=== PATIENT | female | born 1950 | race Caucasian/White ===

== ENCOUNTER → 2021-05-13 14:54 | Outpatient (BNVA) | payer MEDICARE, SELFPAY | PROVIDERS: PCP Internal Medicine; Visit Provider Nurse Practitioner Family | DX: G47.33 Obstructive sleep apnea (adult) (pediatric) (principal); R25.1 Tremor, unspecified; F32.A Depression, unspecified; Z79.899 Other long term (current) drug therapy | CPT/HCPCS: 99212 ==

== ENCOUNTER → 2022-01-24 14:25 | Outpatient (BNVA) | payer MEDICARE, SELFPAY | PROVIDERS: PCP Internal Medicine; Visit Provider Nurse Practitioner Family | DX: G25.0 Essential tremor (principal); F41.9 Anxiety disorder, unspecified | CPT/HCPCS: 99212 ==

== ENCOUNTER → 2022-07-15 12:57 | Outpatient (BNVA) | payer MEDICARE, SELFPAY | PROVIDERS: PCP Internal Medicine; Visit Provider Nurse Practitioner Family | DX: G25.0 Essential tremor (principal); G47.33 Obstructive sleep apnea (adult) (pediatric); F32.A Depression, unspecified; F41.9 Anxiety disorder, unspecified | CPT/HCPCS: 99212 ==

== ENCOUNTER 2023-03-01 08:49 | Outpatient (AMB) | payer MEDICARE, SELFPAY ==
[2023-03-01 08:54] VITALS: BP 112/82; PULSE 59; O2SAT 100; BMI 29.8
--- NOTE | 2023-03-01 08:54 | A.OFFVIS_ITS ---
Intake Vital Signs 03/01/23 08:54 Height 5 ft 5 in Weight 179 lb BMI 29.8 BP 112/82 Blood Pressure Location Rt brachial Position Sitting Pulse 59 Pulse Source Pulse Oximeter Pulse Oximetry (%) 100 Oxygen Delivery Method Room Air Intake Visit Reasons: 4m Follow up tremor/ LVM Intake Note: Patient presents for 4 month follow up tremors. Allergies aspirin [From Percodan] Allergy (Mild, Verified 03/01/23 08:59) unknown citalopram [From Celexa] Allergy (Mild, Verified 03/01/23 08:59) unknown hydroxyzine [From Vistaril] Allergy (Mild, Verified 03/01/23 08:59) Unknown oxycodone [From Percodan] Allergy (Mild, Verified 03/01/23 08:59) unknown quetiapine [From Seroquel] Allergy (Mild, Verified 03/01/23 08:59) unknown HPI HPI Comments History of Present Illness Details 72-yr-old female presents for f/u visit. Pt endorses the following interval medical history changes: Pt states she recently stopped all of her psych medications because she felt that the meds were not working any more and the newer medications she was trying was causing side effects. She stopped these meds abruptly, and she required an ER eval to help her manage her withdrawal s/s- nausea, diarrhea, stomach cramps, headache (states was negative for flu/COVID-19). Since, she is more depression and anxiety with decreased motivation, increased irritability. She is not interested in resuming medications, but is scheduled to resume psychotherapy next week. She did try Propranolol ER 80mg but this made her more dizzy/lightheaded, so decreased Overall her tremor is stable, but can be worse when stressed. She did try to stop Propranolol but had increased tremor and did not feel well. PFSH Medical History Cervicalgia GERD (gastroesophageal reflux disease) Headache HLD (hyperlipidemia) Surgical History Hx of breast reduction, elective H/O: hysterectomy Family History Mother Cancer Social History (Reviewed 03/01/23 @ 09:00 by BROOKLYNN Francisco Alcohol intake: never Patient Tobacco Use Status: Never used Tobacco Review of Systems Const All systems reviewed & are unremarkable except as noted in HPI and below Physical Exam Vital Signs: Last Vital Signs Pulse 59 03/01/23 08:54 BP 112/82 03/01/23 08:54 Pulse Ox 100 03/01/23 08:54 Oxygen Delivery Method Room Air 03/01/23 08:54 BMI result Body Mass Index 29.8 Const General: cooperative and no acute distress Orientation/consciousness: patient oriented x3 HEENT Head: Yes normocephalic Resp Effort & Inspection: normal respiratory effort and able to speak in complete sentences Neuro Other: Mild BUE postural tremor FFM intact General: patient oriented x3, gait normal and CN's II-XI intact bilaterally Cognition (Neuro): normal cognition Motor exam (neuro): 5/5 motor strength present throughout Psych Appearance: grossly normal Mental Status: mental status grossly normal Speech and movement: Clear speech present Affect: normal affect Attitude: cooperative Thought process: Normal thought process present Thought content: Normal thought content present Insight: Good insight present (Psych) Judgement: Good judgement present (Psych) Assessment & Plan Assessment & Plan (1) Tremor: Comment: essential vs exaggerated physiological Code(s): R25.1 - Tremor, unspecified (2) Anxiety: Code(s): F41.9 - Anxiety disorder, unspecified Plan Continue Propranolol ER 60mg qhs. Previous tremor tx trials- Gabapentin- possibly causing irritability. Propranolol ER 80mg- caused dizziness/lightheadedness. Lucas-Trio- not sure if was effective. Pt no longer has a psychiatrist- if mood worsens, we can consider resuming an anti-depressant for her. Encouraged pt to schedule pleasurable activities to avoid social isolation, such as with family or going to anabaptism. Concur w/ establishing care w/ new psychologist. Monitor LIT s/s for now. f/u in 4 months or sooner prn Coding Level of Care Code Est Pt Level 4 (99626) Diagnoses Tremor R25.1 Anxiety F41.9
== END 2023-03-01 09:32 | disposition home or self-care (01) ==
PROVIDERS: Visit Provider Nurse Practitioner Family
DX: R25.1 Tremor, unspecified (principal); F41.9 Anxiety disorder, unspecified
CPT/HCPCS: 99214

== ENCOUNTER → 2023-03-01 08:49 | Outpatient (BNVA) | payer MEDICARE, SELFPAY | PROVIDERS: Visit Provider Nurse Practitioner Family | DX: R25.1 Tremor, unspecified (principal); F41.9 Anxiety disorder, unspecified | CPT/HCPCS: 99212 ==

== ENCOUNTER 2023-12-07 08:31 | Outpatient (AMB) | payer MEDICARE, SELFPAY ==
--- NOTE | 2023-12-07 08:33 | A.OFFVIS_ITS ---
Vital Signs 12/07/23 08:34 Height 5 ft 5 in Weight 166 lb BMI 27.6 BP 112/67 Blood Pressure Location Rt brachial Position Sitting Pulse 57 Pulse Source Pulse Oximeter Pulse Oximetry (%) 97 Oxygen Delivery Method Room Air Intake Visit Reasons: 4 mo f/u - Tremors Intake Note: memory loss, forgetting more often. Infantry Operations Specialist Required: No Accompanied by: Self / Same As Patient Allergies aspirin [From Percodan] Allergy (Mild, Verified 12/07/23 08:38) unknown citalopram [From Celexa] Allergy (Mild, Verified 12/07/23 08:38) unknown hydroxyzine [From Vistaril] Allergy (Mild, Verified 12/07/23 08:38) Unknown oxycodone [From Percodan] Allergy (Mild, Verified 12/07/23 08:38) unknown quetiapine [From Seroquel] Allergy (Mild, Verified 12/07/23 08:38) unknown Medication List - Last Reconciled 12/07/23 by JAYLA Stock atorvastatin 10 mg PO DAILY fexofenadine (Alejandra Allergy) 180 mg PO DAILY fluticasone propionate 50 mcg/actuation sprays intranasal propranolol ER 60 mg PO BEDTIME 30 days tizanidine 2 mg PO BEDTIME PRN HPI Comments Details: 73-yr-old female presents for f/u visit. Pt endorses the following interval medical history changes: Pt states she has been worked up for GERD and dysphagia, and chest CT showed a liquid nodule in the right thyroid compressing the trachea as well as a retroesophageal aberrant right subclavian artery. Since, the thyroid cyst but her s/s persisted. She is scheduled fro upcoming endoscopy. Recent thyroid levels were NL She did try to stop the Propranolol ER 80mg but this made her tremor worse. Overall her tremor is stable, but can be worse when stressed. Using Melatonin, Benadryl, Zanaflex 1/2 tab, and Tylenol for sleep and to minimize GERD s/s. Does snore, less since using invisalign. Does have ah/o mild LIT- but did not tolerate PAP tx before. She is noticing a bit more word finding difficulty and losing her train of thought, more so in the last few weeks. She is finding herself more easily agitated and prone to saying things she does not want to say. She is finding herself pushing people away. This is part of why, she stopped working a few months ago, as a substitute school nurse. And she has stopped going to amish. Her is supportive- but has medical issues. She does talk w/ her dtr- but she works. She is not talking w/ her grandchildren- states they have been. Her grt-granddtr recently from a brain tumor. PFSH Medical History HLD (hyperlipidemia) GERD (gastroesophageal reflux disease) Cervicalgia Headache Surgical History Hx of breast reduction, elective H/O: hysterectomy Family History Mother Cancer Social History Alcohol intake: never Patient Tobacco Use Status: Never used Tobacco Review of Systems Const All systems reviewed & are unremarkable except as noted in HPI and below Physical Exam Vital Signs: Last Vital Signs Pulse 57 12/07/23 08:34 BP 112/67 12/07/23 08:34 Pulse Ox 97 12/07/23 08:34 Oxygen Delivery Method Room Air 12/07/23 08:34 BMI result Body Mass Index 27.6 Const General: cooperative and no acute distress Resp Effort & Inspection: normal respiratory effort and able to speak in complete sentences Neuro Other: General: A&O x's 3 Expression: Intact Voice: Intact Tremor: Mild BUE postural tremor Psych: Pleasant affect, but as visit progressed sad and weepy at times. Assessment & Plan Assessment & Plan (1) Essential tremor: Code(s): G25.0 - Essential tremor Category: Medical (2) Depression: Code(s): F32.A - Depression, unspecified Category: Medical Plan Continue Propranolol ER 60mg qhs. Previous tremor tx trials- Gabapentin- possibly causing irritability. Propranolol ER 80mg- caused dizziness/lightheadedness. Lucas-Trio- not sure if was effective. Pt no longer has a psychiatrist- if mood worsens, we can consider resuming an anti-depressant for her. Encouraged pt to schedule pleasurable activities to avoid social isolation, such as with family or going to amish. Increase physical activity. Encouraged pt to reestablish care w/ new psychologist. Monitor cognition- likely multi-factorial Monitor LIT s/s for now- pt is not interested in retrying PAP tx. Invisalign may help some. f/u in 6 months or sooner prn Medications: Refilled propranolol ER 60 mg PO BEDTIME 30 days 30 caps 6RF Coding Level of Care Code Est Pt Level 4 (32257) Diagnoses Essential tremor G25.0 Depression F32.A
[2023-12-07 08:34] VITALS: BP 112/67; PULSE 57; O2SAT 97; BMI 27.6
== END 2023-12-07 09:33 | disposition home or self-care (01) ==
PROVIDERS: PCP Internal Medicine; Visit Provider Nurse Practitioner Family
DX: G25.0 Essential tremor (principal); F32.A Depression, unspecified
CPT/HCPCS: 99214

== ENCOUNTER → 2023-12-07 08:31 | Outpatient (BNVA) | payer MEDICARE, SELFPAY | PROVIDERS: PCP Internal Medicine; Visit Provider Nurse Practitioner Family | DX: G25.0 Essential tremor (principal); F32.A Depression, unspecified | CPT/HCPCS: 99212 ==

== ENCOUNTER 2025-02-18 13:49 | Outpatient (AMB) | payer BC, SELFPAY ==
--- OUTSIDE RECORDS SUMMARY | 2023-10-12 05:30 | XMS_ITS ---
[facility] [place] Address [address] [place] [address] Care Team Providers Care Legal Coordinator Name Role Phone Vibha Goode Primary Care Provider UnavailRalph Cavanaugh Unavailable [phone] Irene Sahu Unavailable [phone] Allergies Allergen (clinical drug ingredient) Drug/Non Drug Allergy documented on EMR Reaction Allergy Type Onset Date Status citalopram CeleXA Unknown Drug Allergy Active Percodan Unknown Drug Allergy Active quetiapine SEROquel Unknown Drug Allergy Active hydroxyzine Vistaril Unknown Drug Allergy Activ e REASON FOR VISIT seen sooner Medications Medication SIG (Take, Route, Frequency, Duration) Notes Start Date End Date Status Ibuprofen 800 MG 1 tablet with food o r milk as needed Orally every 8 hrs Active tiZANidine HCl 4 MG 1 tablet at bedtime as needed Orally Once a day Active Atorvastatin Calcium 10 MG 1 tablet Oral ly Once a day Active Propranolol HCl 60 MG 1 tablet Orally On ce a day Active NexIUM Active Social History Tobacco Use: Social History Observation Description Date Details (start date - stop date) Never Smoker NA - NA Tobacco Use/Smoking Question Answer Notes Are you a: nonsmoker Additional Findings: Tobacco Non-User Current no n-smoker Alcohol Screen Question Answer Notes Did you have a drink containing alcohol in the p ast year? No Points 0 Interpretation Negative Tobacco use other than smoking: Question Answer Notes Are you an other tobacco user? No Vital Signs Height 5 ft 5 in in 10/12/2023 Weight 165 lbs 10/12/2023 BMI 27.45 kg/m2 10/12/2023 Encounters Encounter Location Date Provider Diagnosis [facility] [address] [place] [address] 10/12/2023 Irene Sahu Plan Of Treatment No Information Progress Notes * Demi BRAUNDOB:1950 (74 yo F)Acc No.[id number]:10/12/2023 Progress Notes Patient: Demi LOPEZ Provider: Tiffanie Sahu DPM :1950 A ge:73 Y S ex:Female Date:10/12/2023 Address:[address] [place], [place] [id number] Pcp:Vibha Goode Subjective: * Chief Complaints: * 1 . Seen sooner. * ROS: H EENTM: Glasses/contacts a dmits. D ental implants a dmits.? G astrointestinal: Irritable bowel a dmits. C onstipation a dmits.? M usculoskeletal: Back Pain a dmits. G eneralized aches and pains a dmits. I nteg.: Ingrown nails a dmits. N eurologic: Tremors a dmits. * Medical History: A nxiety, Back,Hip,and Knee pain, Covid-19, Depression, Reflux ( GERD), Sinusitis, Measles, Mumps, Chicken pox, Essential tremors. * Surgical History: b reast reduction 1994, hysterectomy 2007, oopherectomy 1975, Ingrown Toe Nail, right 04/2021. * Family History: M other: , diagnosed with Other malignant neoplasm of unspecified site. F ather: . P aternal aunt: kidney/liver disease. M aternal aunt: kidney/liver disease. S iblings: high blood pressure, poor circulation. S pouse: diagnosed with Diabetic - NIDDM. * Social History: T obacco Use: T obacco Use/Smoking A re you a: n onsmoker A dditional Findings: Tobacco Non-User C urrent non-smoker Tobacco use other than smoking A re you an other tobacco user? N o D rugs/Alcohol: D rugs H ave you used drugs other than those for medical reasons in the past 12 months? N o Alcohol Screen D id you have a drink containing alcohol in the past year? N o P oints 0 I nterpretation N egative M iscellaneous: C affeine: yes. Children: yes, 1. Marital status: . Occupation: Retired Nurse. * Medications: T aking Propranolol HCl 60 MG Tablet 1 tablet Orally Once a day , Taking NexIUM , Taking Atorvastatin Calcium 10 MG Tablet 1 tablet Orally Once a day , Taking Ibuprofen 800 MG Tablet 1 tablet with food or milk as needed Orally every 8 hrs , Taking tiZANidine HCl 4 MG Tablet 1 tablet at bedtime as needed Orally Once a day * Allergies: P ercodan, Vistaril, CeleXA, SEROquel. Objective: * Vitals: H t: 5 ft 5 in, Wt:165, BMI:27.45, Shoe size: 9, Ht-cm: 165.1 cm, Wt-k.84 kg. Assessment: Plan: * Treatment: * Images: * The named appointment provid er may or may not be the originator of this progress note, and it is not deemed complete until electronically signed by the appointment provider. Sign off status: Pending * Provider: Tiffanie Sahu DPM Date: 0 10/12/2023 Generated for Indira florez/Beena/Jono on: 04/20/2024 05:41 PM EST
--- OUTSIDE RECORDS SUMMARY | 2024-05-27 05:00 | XMS_ITS ---
Author Organization [facility] Address [address] [place] [address] Care Team Providers Care Nanotechnician Name Role Phone Vibha Goode Primary Care Provider Ralph Cowart Unavailable [phone] Irene Sahu Unavailable [phone] Encounters Encounter Location Date Provider Diagnosis [address] [address] 05/27/2024 Irene Sahu Plan Of Treatment No Information Progress Notes * AMELIADemi HUYNHDOB:1950 (74 yo F)Acc No.[id number]:05/27/2024 Progress Note Patient: Demi LOPEZ Provider: Tiffanie Sahu DPM :1950 A ge:74 Y S ex:Female Date:05/27/2024 Address:[address] [place], [place] [id number] Pcp:Vibha Goode Subjective: * Chief Complaints: * * Medical History: Objective: * Vitals: Assessment: Plan: * Treatment: * Images: * The named appointment provid er may or may not be the originator of this progress note, and it is not deemed complete until electronically signed by the appointment provider. Sign off status: Pending * Provider: Tiffanie Sahu DPM Date: 0 05/27/2024 Generated for Indira florez/Beena/Jono on: 04/20/2024 05:41 PM EST
--- NOTE | 2025-02-18 13:51 | A.OFFVIS_ITS ---
Vital Signs 02/18/25 13:52 Height 16 ft BP 100/70 Blood Pressure Location Rt brachial Position Sitting Pulse 61 Pulse Source Pulse Oximeter Pulse Oximetry (%) 97 Oxygen Delivery Method Room Air Intake Visit Reasons: follow up appt Intake Note: memory loss, forgetting more often. Sports Medicine Specialist Required: No Accompanied by: Self / Same As Patient Allergies aspirin (From Percodan) Allergy (Mild, Verified 12/07/23 08:38) unknown citalopram (From Celexa) Allergy (Mild, Verified 12/07/23 08:38) unknown hydroxyzine (From Vistaril) Allergy (Mild, Verified 12/07/23 08:38) Unknown oxycodone (From Percodan) Allergy (Mild, Verified 12/07/23 08:38) unknown quetiapine (From Seroquel) Allergy (Mild, Verified 12/07/23 08:38) unknown Medication List - Last Reconciled 02/18/25 by JAYLA Stock atorvastatin 10 mg PO DAILY esomeprazole magnesium (Nexium) 20 mg PO BID fexofenadine (Alejandra Allergy) 180 mg PO DAILY fluticasone propionate 50 mcg/actuation sprays intranasal propranolol ER (Inderal LA) 80 mg PO BEDTIME 30 days tizanidine 2 mg PO BEDTIME PRN HPI Comments Details: 74-yr-old female presents for f/u visit for tremor. She is scheduled to have a thyroid surgery in Apr 2025, d/t difficulty swallowing. Having increased mucus on her tongue and GERD s/s. She reached out to us a few months ago, and asked to increase the Propranolol ER from 60mg to 80mg- as she noticed increased head tremor, more so in the right hand. Overall her tremor is better now, but can be worse when stressed. Tolerating well Using Motrin 800mg or Tylenol PM, or Melatonin Gummies as needed for sleep. Using Zanaflex 1/2 tab as needed for back pain. Does snore, less since using invisalign. Does have ah/o mild LIT- but did not tolerate PAP tx before. 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 Returning to work has helped her break out of the habit of sitting on the couch and feeling more depressed after retiring. She notes that she has a h/o being easily triggered and frustrated when she sees something she does not like. She is noticing some STM lapses, word finding difficulty and losing her train of thought. She is not making mistakes or having issues in her new job. Her is supportive- but has medical issues. She does talk w/ her dtr- but she works. She is not talking w/ her grandchildren- states they have been. Her grt-granddtr recently from a brain tumor. PFSH Medical History HLD (hyperlipidemia) GERD (gastroesophageal reflux disease) Cervicalgia Headache Surgical History Hx of breast reduction, elective H/O: hysterectomy Family History Mother Cancer Social History Alcohol intake: never Patient Tobacco Use Status: Never used Tobacco Physical Exam Vital Signs: Last Vital Signs Pulse 61 02/18/25 13:52 BP 100/70 02/18/25 13:52 Pulse Ox 97 02/18/25 13:52 Oxygen Delivery Method Room Air 02/18/25 13:52 Const General: cooperative and no acute distress Resp Effort & Inspection: normal respiratory effort and able to speak in complete sentences Neuro Other: General: A&O x's 3 Expression: Intact Voice: Intact Tremor: Mild BUE postural tremor Psych: Pleasant affect Assessment & Plan Assessment & Plan (1) Essential tremor: Code(s): G25.0 - Essential tremor Category: Medical (2) Depression: Code(s): F32.A - Depression, unspecified Category: Medical Qualifiers: Depression Type: unspecified Qualified Code(s): F32.A - Depression, unspecified Plan Continue increased dose of Propranolol ER 80mg qhs. Previous tremor tx trials- Gabapentin- possibly causing irritability. Propranolol ER 80mg- caused dizziness/lightheadedness. Lucas-Trio- not sure if was effective. Concur with return to part-time nursing work Increase physical and social activity. Monitor cognition- likely multi-factorial Future considerations: establish care w/ new psychologist. Monitor LIT s/s for now- pt is not interested in retrying PAP tx. Invisalign may help some. f/u in 6 months or sooner prn Coding Level of Care Code Est Pt Level 4 (93928) Diagnoses Essential tremor G25.0 Depression, unspecified depression type F32.A Depression Type: unspecified
[2025-02-18 13:52] VITALS: BP 100/70; PULSE 61; O2SAT 97
--- OUTSIDE RECORDS SUMMARY | 2025-02-18 17:40 | XMS_ITS | Clinical Summary ---
Author Organization [facility] Address [address] [place], [place] [id number] Phone Care Team Providers Care Nursing Secretary Name Role Phone Cuate Brito MD Primary Care Provider + Allergies Active Allergy Reactions Criticality Noted Date Comments Citalopram Palpitations Low 07/10/2018 Hydroxyzine Other (See Comments),Restlessness Low 0 07/19/2013 RLS Hydroxyzine Pamoate Unknown 01/07/2022 Oxycodone Nausea and/or Vomiting 01/07/2022 Percodan Mena Itching,Nausea and/or Vomiting Quetiapine Joint Pain,Tardive Dyskinesia High 2013 Medications atorvastatin (LIPITOR) 10 MG tablet Take 10 mg by mouth daily. 10/19/2021 Active DULoxetine (CYMBALTA) 60 MG capsule Take 60 mg by mouth daily. 02/22/2021 Active fexofenadine (DOMINGO) 180 MG tablet Take 180 mg by mouth daily. 01/04/2022 Active fluticasone propionate (FLONASE) 50 mcg/actuation nasal spray 2 sprays by Nasal route daily. 11/24/2021 Active propranoloL (INDERAL LA) 60 mg 24 hr capsule Take 60 mg by mouth daily. 11/23/2021 Active tiZANidine (ZANAFLEX) 4 MG tablet Take 4 mg by mouth daily. 01/04/2022 Active traZODone (DESYREL) 50 MG tablet Take 50 mg by mouth daily. 02/22/2021 Active Social History Tobacco Use Types Packs/Day Years Used Date Smoking Tobacco: Never Smokeless Tobacco: Never Education Answer Date Recorded Are you interested in more education? Not on bin e 07/22/2022 Are you concerned about learning? Not on file 07/22/2022 No 07/22/2022 No 07/22/2022 Digital Access Answer Date Recorded No 08/20/2022 No 08/20/2022 No 08/20/2022 Reliable internet access at home? Not on file 08/20/2022 Device with a working camera? Not on file Comments Unknown Sex and Gender Information Value Date Recorded Sex Assigned at Female 01/04/2022 9:41 AM EDT Legal Sex Female 10:36 PM EDT Gender Identity Female 01/04/2022 9:41 AM EDT Sexual Orientation Not on file Last Filed Vital Signs Vital Sign Reading Time Taken Comments Blood Pressure 162/77 01/07/2022 11:58 AM EDT Pulse 58 01/07/2022 11:58 AM EDT Temperature 36.8 C (98.3 F) 01/07/2022 11:57 AM EDT Respiratory Rate 16 01/07/2022 11:53 AM EDT Oxygen Saturation 99% 01/07/2022 11:58 AM EDT Inhaled Oxygen Concentration - - Weight 81.2 kg (179 lb 1.6 oz) 01/07/2022 11:53 AM EDT Height 166.4 cm (5' 5.5 ) 01/07/2022 11:53 AM ED T Body Mass Index 29.35 01/07/2022 11:53 AM EDT Plan of Treatment Health Maintenance Due Date Last Done Comments DEPRESSION SCREENING 1963 HEPATITIS C SCREENING 1969 MAMMOGRAM 1991 COLOGUARD 1996 COLONOSCOPY 1996 COLORECTAL CANCER SCREENING 1996 FIT TEST 1996 FOBT 1996 SIGMOIDOSCOPY 1996 VIRTUAL COLONOSCOPY 1996 OSTEOPOROSIS SCREENING INITIAL (ONE-TIME) 2016 Adult Td,Tdap Booster 06/12/2018 06/12/2008, 007 INFLUENZA VACCINE (#1) 2024 , 12/22/2021, 01/15/2021, Additional history exists COVID-19 VACCINE ( season) 2024 10/12/2021, 01/31/2021, 05/18/2020, Additional history exists RSV VACCINE (1 - 1-dose 75+ series) 2026 LIPID PANEL 12/23/2026 12/23/2021 PNEUMOCOCCAL VACCINES (50+ years) Completed 01/26/2018, 01/20/2017 ZOSTER VACCINES Completed 06/28/2021, 04/30/2021 SMOKING STATUS SCREENING (Once After 26 Yrs) Completed 01/07/2022 HEPATITIS A VACCINES Aged Out No long er eligible based on patient's age to complete this topic HIB VACCINES Aged Out No longer eligi ble based on patient's age to complete this topic MENINGOCOCCAL VACCINES (ACWY) Aged Out No longer eligible based on patient's age to complete this topic MENINGOCOCCAL VACCINES (B) Aged Out N o longer eligible based on patient's age to complete this topic Medical Devices Not on file Insurance [employer] PPO MEDICARE REPLACEMENT MEDICARE PART A & B [employer] PPO MEDICARE REPLACEMENT MEDICARE PART A & B Member Subscriber Plan / Payer (Ef fective 2022-Present) Name:Mali Braun Member ID:[id number] Relation to Subscriber:Self Name:Michaelbenjiebrian Eugenenikki Subscriber ID:[id number] Payer ID:[id number] Group ID:Not on file Type:Medicare Address: [employer] [address] [address] [employer] O MEDICARE REPLACEMENT MEDICARE PART A & B [employer]ET[employer] PPO MEDICARE REPLACEMENT MEDICARE PART A & B [employer] PPO MEDICARE REPLACEMENT MEDICARE PART A & B [employer] PPO MEDICARE REPLACEMENT MEDICARE PART A & B [employer]ETNA PPO MEDICARE REPLACEMENT MEDICARE PART A & B AETNA PPO MEDICARE REPLACEMENT MEDICARE PART A & B [employer]ET[employer] PPO MEDICARE REPLACEMENT MEDICARE PART A & B Care Teams Nursing Secretary Relationship Specialty Start Date End Date Cuate Brito MD [address] [place] [id number] PCP - General Internal Medicine 01/07/22 Additional Source Comments The information contained in this document represents components of the legal health record. It is not the complete legal health record.[facility]
--- OUTSIDE RECORDS SUMMARY | 2025-02-18 17:40 | XMS_ITS | Clinical Summary ---
Author Organization [address] [facility] Address [address] [place] [address] Phone Care Team Providers Care Porcelain Slusher Name Role Phone Cuate Brito MD Primary Care Provider [phone] Allergies Active Allergy Reactions Criticality Noted Date Comments Aspirin Nausea And Vomiting Medium 07/21/2016 Citalopram 07/10/2018 Hydroxyzine Hcl Other 07/19/2013 RLS Quetiapine Fumarate Pain 10/31/2013 Venlafaxine 07/10/2018 Medications acyclovir (ZOVIRAX) 400 mg tablet Take 1 tablet (400 mg total) by mouth 5 (five) times a day. 2 Active atorvastatin (LIPITOR) 10 mg tablet Take 1 tablet (10 mg total) by mouth at bedtime. 4 Active esomeprazole (NexIUM) [address] capsule Take 1 capsule (40 mg total) by mouth 1 (one) time each day before breakfast. wait 30 minutes and then eat to activate medication 4 Active fluticasone propionate (FLONASE) 50 mcg/actuation nasal spray Administer 2 sprays into affected nostril(s) 1 (one) time each day. 2 Active oxyBUTYnin XL (DITROPAN-XL) 10 mg 24 hr tablet Take 1 tablet (10 mg total) by mouth 1 (one) time each day. 4 Active propranolol LA (INDERAL LA) 60 mg 24 hr capsule Take 1 capsule (60 mg total) by mouth 1 (one) time each day. 2 Active tiZANidine (ZANAFLEX) 4 mg tablet Take 1 tablet (4 mg total) by mouth 1 (one) time each day. 4 Active fexofenadine HCl (DOMINGO ALLERGY ORAL) Take by mouth. A ctive docusate sodium (COLACE) 100 mg capsule Take 1 capsule (100 mg total) by mouth 2 (two) times a day. Active famotidine (PEPCID) 20 mg tablet Take 1 tablet (20 mg total) by mouth 2 (two) times a day if needed for heartburn. 4 Active Active Problems Problem Noted Date Diagnosed Date Overweight (BMI 25.0-29.9) 12/23/2021 Essential tremor 12/22/2021 Overview (01/04/2024): Dr. Patrick Neck pain 06/07/2019 Low back pain without sciatica 05/10/2019 Pain of left hip joint 05/10/2019 Allergic rhinitis 07/10/2018 Anemia 07/10/2018 HSV (herpes simplex virus) infection 07/10/2018 Overview (01/04/2024): anogenital Steatohepatitis 07/10/2018 IBS (irritable bowel syndrome) 08/22/2014 Overview (01/04/2024): Constipation; improvement with dicyclomine. Hyperlipidemia 01/02/2014 Vitamin D deficiency 01/02/2014 Depression, major, recurrent ([facility] V24) 11/28 Overview (01/04/2024): Last Assessment & Plan: Encouraged patient to continue with Cymbalta and close follow-up with prescribing provider. PTSD (post-traumatic stress disorder) 11/28/2013 Substance abuse in remission ([facility] V24, [facility] V28) 11/28/2013 Overview (01/04/2024): Alcohol- sober since 1989 GERD (gastroesophageal reflux disease) 4 Hiatal hernia 07/19/2013 Immunizations Immunization Administration Dates Next Due H1N1 Inj Preservative Free 12/14/2010 Influenza trivalent, 0.5mL ( Fluzone High-dose) 65yo and older 12/22/2021,01/15/2021,01/15/2020,01/21 Influenza trivalent, with pr eservative (Fluzone; Afluria) 6mo and older 12/30/2013 Influenza, Unspecified 01/15/2021 PPD Test 12/08/2017,09/08/2017 Pneumococcal conjugate 13 va lent (Prevnar 13, PCV13) 2mo and older 01/20/2017 Pneumococcal polysaccharide 23 valent (Pneumovax 23) 2yo and older 01/26/2018 Td Tetanus diptheria (Tdvax) 7yo and older 11/07/2018,06/05/2006 Tdap Tetanus diptheria acell ular pertussis (Boostrix; Adacel) 7yo and older 06/12/2008 Zoster recombinant (Shingrix ) 19yo and older 06/28/2021,04/30/2021 Surgical History Surgery Date Site/Laterality Comments OTHER SURGICAL HISTORY 2007 PROCEDURE: HISTORICAL SUPRACERVICAL HYSTERECTOMY WITH BSO BREAST REDUCTION 1994 PROCEDURE: MO BREAST REDUCTION CATARACT EXTRACTION PROCEDURE: HISTORICAL CATARACT REMOVAL UPPER GASTROINTESTINAL ENDOSCOPY 11/07/2011 PROCEDURE: MO UPPER GI ENDOSCOPY PERFORMED; COMMENT: Dr. Stein, [facility]; totally normal. COLONOSCOPY 05/13/2010 PROCEDURE: HISTORICAL COLONOSCOPY; COMMENT: Dr. Stein, [facility]; normal. Repeat 5 yrs COLONOSCOPY 03/09/2005 PROCEDURE: HISTORICAL COLONOSCOPY; COMMENT: Dr. Stein, [facility]; normal. COLONOSCOPY 04/11/2019 PROCEDURE: HISTORICAL COLONOSCOPY; COMMENT: no polyps. UPPER GASTROINTESTINAL ENDOSCOPY 09/12/2019 PROCEDURE: MO UPPER GI ENDOSCOPY PERFORMED; COMMENT: tiny hiatal hernia. Medical History Medical History Date Comments Major depression DX:Major depres lake IBS (irritable bowel syndrome) 08/22/2014 D X:IBS (irritable bowel syndrome) Allergic rhinitis 07/10/2018 DX:Allergic rh initis Hyperlipidemia 01/02/2014 DX:Hyperlipidemi a Steatohepatitis 07/10/2018 DX:Steatohepatit is Depression, major, recurrent (CMS/HCC V24) 11/28/2013 DX:Depression, major, recurr ent ([facility]) Family history of malignant neoplasm of gastrointestinal tract 07/31/2014 DX:Family history of maligna nt neoplasm of gastrointestinal tract; COMMENT: Neg CN 2010, next exam 2015. GERD (gastroesophageal reflu x disease) 07/19/2013 DX:GERD (gastroesophageal re flux disease) Anemia 07/10/2018 DX:Anemia HSV (herpes simplex virus) infection 07/10/2018 DX:HSV (herpes simplex virus) infection; COMMENT: anogenital Vitamin D deficiency 01/02/2014 DX:Vitamin D deficiency PTSD (post-traumatic stress disorder) 11/28/2013 DX:PTSD (post-traumatic stress disorder) History of colonic polyps 07/31/2014 DX:His tory of colonic polyps Substance abuse in remission ([facility] V24, [facility] V28) 11/28/2013 DX:Substance abuse in remiss ion ([facility]); COMMENT: Alcohol- sober since 1989 History of Helicobacter pylo ri infection 09/02/2019 DX:History of Helicobacter p ylori infection; COMMENT: Treatment 2014, stool test -2016. Dysphagia DX:Dysphagia Globus sensation DX:Globus sensa tion Covid DX:COVID Black stool DX:Black stool Family History Medical History Relation Name Comments Colon cancer Mother age 43 Breast cancer Neg Hx Relation Name Status Comments Father fire key jones Mother (Age 48) colon ca 4 8yo Social History Tobacco Use Types Packs/Day Years Used Date Smoking Tobacco: Never Smokeless Tobacco: Never Tobacco Cessation:Counseling Given: Not Answered Alcohol Use Standard Drinks/Week Comments No 0 (1 standard drink = 0.6 oz pur e alcohol) Comments Unknown Sex and Gender Information Value Date Recorded Sex Assigned at Female 02/24/2024 8:49 AM EST Legal Sex Female 10:43 AM EST Gender Identity Female 02/24/2024 8:49 AM EST Sexual Orientation Not on file Obstetrics History Last Filed Vital Signs Vital Sign Reading Time Taken Comments Blood Pressure 134/64 02/29/2024 8:18 AM EST Pulse 56 02/29/2024 8:18 AM EST Temperature 36 C (96.8 F) 02/29/2024 8:18 AM EST Respiratory Rate 14 02/29/2024 8:18 AM EST Oxygen Saturation 96% 02/29/2024 8:18 AM EST Inhaled Oxygen Concentration - - Weight 72.6 kg (160 lb) 02/29/2024 8:18 AM EST Height 166.4 cm (5' 5.5 ) 01/17/2024 1:15 PM EDT Body Mass Index 26.22 01/17/2024 1:15 PM EDT Plan of Treatment Health Maintenance Due Date Last Done Comments Hepatitis A Vaccines (1 of 2 - Risk 2-dose series) 1969 Falls Risk Assessment 03/05/2022 Medicare Annual Wellness Visit 03/05/2022 Social Influencers of Health Screening 03/05/2022 Depression Screening 03/27/2024 Colorectal Cancer Screening: Colonoscopy 04/11/2024 04/11/2019 COVID-19 Vaccine ( season) 2024 12/22/2023, 01/26/2022, 10/12/2021, Additional history exists Influenza Vaccine (#1) 2024 , 12/15/2022, 12/22/2021, Additional history exists Breast Cancer Screening 06/30/2025 07/01/19 24, 06/11/2022, 03/15/2021, Additional history exists DTaP,Tdap,and Td Vaccines (4 - Td or Tdap) 11/07/2028 11/07/2018, 06/12/2008, 06/05/2006 Cholesterol Screening (Lipid Panel) 12/28/2028 12/29/2023, 12/29/2023 Osteoporosis Screening (Bone Density Screening) 09/25/2030 09/25/2020 Hepatitis C Screening Completed 12/30/2013 Pneumococcal Vaccine: 50+ Years Completed 01/26/2018, 01/20/2017 Zoster Vaccines Completed 06/28/2021, 04/30/2021 RSV Immunization Adult Patients Completed 03/25/2023 HIB Vaccines Aged Out No longer eligi ble based on patient's age to complete this topic HPV Vaccines Aged Out No longer eligi ble based on patient's age to complete this topic Hepatitis B Vaccines Aged Out No long er eligible based on patient's age to complete this topic IPV Vaccines Aged Out No longer eligi ble based on patient's age to complete this topic MMR Vaccines Aged Out No longer eligi ble based on patient's age to complete this topic Meningococcal ACWY Vaccine Aged Out N o longer eligible based on patient's age to complete this topic Meningococcal B Vaccine Aged Out No l onger eligible based on patient's age to complete this topic RSV Immunization Patients Under 20 months Aged Out No longer eligible based on patient's age to complete this topic Varicella Vaccines Aged Out No longer eligible based on patient's age to complete this topic Procedures Procedure Name Priority Date/Time Associated Diagnosis Comments LIPID PANEL Routine 12/29/2023 SCREENING MAMMOGRAPHY BI 2-VIEW BREAST INC CAD Routine 07/01/2023 11:28 AM EDT Encounter for screening mammogram for malignant neoplasm of breast DXA BONE DENSITY STUDY 1+ SITS AXIAL SKEL Routine 09/25/2020 11:07 AM EDT Encounter for general adult medical examination without abnormal findings COLONOSCOPY Routine 04/11/2019 HEPATITIS C SCREENING Routine 12/30/2013 from Last 3 Months or Most Recently Relevant to Health Maintenance Results * Lipid panel (12/29/2023) LDL/HDL Ratio 3 0 - 4 Triglycerides 105 0 - 150 mg/dL Cholesterol 171 0 - 200 mg/dL HDL 61 >=40 mg/dL LDL Cholesterol 89 0 - 100 mg/dL Blood Venous blood specimen / Unknown us Historical Provider LAB BLOOD ORDERABLES Oly l Result * SCREENING MAMMOGRAPHY BI 2-VIEW BREAST INC CAD (07/01/2023 11:28 AM EDT) Anatomical Region Laterality Modality Radiographic Helen ging 06/11/2022 10:1 3 AM EDT Narrative 07/03/2023 7:02 PM EDT This is a summary report. The complete report is available in the patient's medical record. If you cannot access the medical record, please contact the sending organization for a detailed fax or copy. Full field digital screening 2D C views and tomosynthesis mammography, reviewed with CAD and compared to previous. The breasts are composed of fatty and fibroglandular tissue. No suspicious mass, architectural distortion or suspicious calcifications are identified. IMPRESSION: : No mammographic evidence of malignancy. BIRADS 1-Negative; N. 5 year breast cancer risk assessment 1.3 % Lifetime breast cancer risk assessment 3.3 % Breast cancer risk category Low (<15%) Procedure Note Celeste Ramírez MD - 11/13/2023 This is a summary report. The complete report is available in thepatient's medical record. If you cannot access the medical record, pleasecontact the sending organization for a detailed fax or copy. Full field digital screening 2D C views and tomosynthesis mammography,reviewed with CAD and compared to previous. The breasts are composed offatty and fibroglandular tissue. No suspicious mass, architecturaldistortion or suspicious calcifications are identified. IMPRESSION: : No mammographic evidence of malignancy. BIRADS 1-Negative; N. 5 year breast cancer risk assessment 1.3 % Lifetime breast cancer risk assessment 3.3 % Breast cancer risk category Low (<15%) Davonte Spain DO IMG XR PROCEDURES Final Resul t * DXA BONE DENSITY STUDY 1+ SITS AXIAL SKEL (09/25/2020 11:07 AM EDT) Anatomical Region Laterality Modality Bone Densitometr y 02/13/2020 11:4 6 AM EST Narrative 09/25/2020 5:11 PM EDT Clinical history: menopausal/postmenopausal disorder Scans of the lumbar spine and hips were performed on a [employer] fan beam bone densitometer. Bone mineral density measurements and associated T and Z scores respectively are as follows: Lumbar Spine: L1-L4 BMD: 1.033 g/cm2 T-Score: -0.1 Z-Score: 1.9 Left Proximal Femur: Neck BMD: 0.880 g/cm2 T-Score: 0.3 Z-Score: 1.8 Total BMD: 0.982 g/cm2 T-Score: 0.3 Z-Score: 1.6 Compared with standards for the young adult, lowest measured bone density places the patient in the W.H.O. normal range. IMPRESSION: IMPRESSION: Normal bone density. The NOF guidelines recommend that FDA approved medical therapies be considered in postmenopausal women and men age >50 years with a: i. Hip or vertebral (clinical or morphometric) fracture ii. T score of < -2.5 at the spine or hip iii. 10 year fracture probability by FRAX of >3% for hip fracture, or >20% for major osteoporotic fracture PLEASE NOTE: W.H.O. classification is based on lowest measured density at the spine, femoral neck, or total hip.This classification has prognostic significance when applied to post menopausal women and older men. 1) The World Health Organization defines low BMD as follows: T-score Normal at or > -1 Osteopenia < -1 and > -2.5 Osteoporosis at or < -2.5 without fractures Established osteoporosis < -2.5 with fractures Procedure Note Nay Salcido MD - 03/15/2022 Clinical history: menopausal/postmenopausal disorder Scans of the lumbar spine and hips were performed on a [employer] beam bone densitometer. Bone mineral density measurements and associated T and Z scoresrespectively are as follows: Lumbar Spine: L1-L4 BMD: 1.033 g/cm2 T-Score: -0.1 Z-Score: 1.9 Left Proximal Femur: Neck BMD: 0.880 g/cm2 T-Score: 0.3 Z-Score: 1.8 Total BMD: 0.982 g/cm2 T-Score: 0.3 Z-Score: 1.6 Compared with standards for the young adult, lowest measured bone densityplaces the patient in the W.H.O. normal range. IMPRESSION: IMPRESSION: Normal bone density. The NOF guidelines recommend that FDA approved medical therapies beconsidered in postmenopausal women and men age >50 years with a: i. Hip or vertebral (clinical or morphometric) fracture ii. T score of < -2.5 at the spine or hip iii. 10 year fracture probability by FRAX of >3% for hip fracture, or >20%for major osteoporotic fracture PLEASE NOTE: W.H.O. classification is based on lowest measured density at the spine,femoral neck, or total hip.This classification has prognostic significance when applied to postmenopausal women and older men. 1) The World Health Organization defines low BMD as follows: T-score Normal at or > -1 Osteopenia < -1 and > -2.5 Osteoporosis at or < -2.5 withoutfractures Established osteoporosis < -2.5 with fractures Kate Renteria LEGAL ACTIVITY ADJUDICATOR IMG DXA PROCEDURES Final Result * Colonoscopy (04/11/2019) Colonoscopy No interpretatio n, abstraced Anatomical Region Laterality Modality Other Historical Provider HEALTH MAINTENANCE Final Result * Hepatitis C Screening (12/30/2013) Hepatitis C Screening Abstracted Historical Provider HEALTH MAINTENANCE Final Result from Last 3 Months or Most Recently Relevant to Health Maintenance Care Teams Porcelain Slusher Relationship Specialty Start Date End Date Cuate Brito MD [address] [place] [id number] PCP - General Internal Medicine 11/07/18
--- OUTSIDE RECORDS SUMMARY | 2025-02-18 17:40 | XMS_ITS ---
Author Name [facility] Organization Unknown Care Team Organization Name Specialty Phone Email Start Date End Da valerie [facility] Varsha Primary Care 09/02/2022 11/13/2023 [facility] ALINE TOMLINSON Primary Care 02/01/2022 4
--- OUTSIDE RECORDS SUMMARY | 2025-02-18 17:41 | XMS_ITS | Data Portability ---
Author Organization [place] - [facility], Allergy Address [address] [place] [address] Care Team Providers Care Communications Senior Associate Name Role Phone ALINE TOMLINSON Primary Care Provider [phone] Assessment Encounter Date Assessment Date Assessment LastModified by Organization Details LastModified Time 03/15/2024 03/15/2024 73 year old female with postnasal drip, globus sensation and clear sputum production. She reports seasonal allergies and GERD and we discussed that both of these can cause these symptoms. FOL was unremarkable. She does frequently throat clear throughout the visit. I have encouraged her to drink water rather than throat clear when she feels mucus in the throat as this can become a repetitive cycle further irritating the throat. I have offered her allergy testing and she would like to proceed with this. We will follow up to review the allergy testing. FOL was performed with Dr. Erwin. [email or web address] Not available 03/15/2024 15:10:41 Plan of Treatment Reminders Order Date Submit Date Provider Last Modified By Organization Details Last Modified Time Details Appointments None recorded. Lab None recorded. Referral None recorded. Procedures allergy testing, skin prick (PROC) 2023 024 [email or web address] Not available 5 11:20:02 intradermal allergy skin testing (PROC) 2023 024 [email or web address] Not available 5 11:20:02 pulmonary function test procedure (PROC) 2023 024 [email or web address] Not available 5 11:20:02 pulse oximetry (PROC) 2023 024 [email or web address] Not available 5 11:20:02 Surgeries None recorded. Imaging None recorded. Medication Orders None recorded. Patient TargetsNo targets recorded. Patient InstructionsNo instructions recorded. Reason for Referral None Reported. Problems Name Problem SNOMED Code Status Onset Date Resolution Date Notes Provider Name and Address Organization Details Recorded Time Closed fracture of orbital floor 70585643111 147212 Active 2015 Fracture of orbital floor, initial encounter for closed fracture; Note: Date Diagnosed : 04/16/2015 4:47 PM (S02.3XXA ) Not Available [facility] 4 02:51:51 Bleeding from nose 402484316 Active 2017 Epistaxis ; Note: Date Diagnosed : 07/28/2017 11:57 AM (R04.0) Not Available [facility] 4 02:51:47 Gastroeso phageal reflux disease without esophagit is 384973874 Active 2023 Rik guevara [place] - [facility] 13:42:50 Allergic rhinitis 31475999 Active 2023 Rik guevara [place] - [facility] 13:43:04 Posterior rhinolali a clausa 69065167 Active 2023 Rik guevara [place] - [facility] 13:43:29 Posterior rhinorrhe a 33639741 Active 2023 Rik guevara [place] - [facility] 13:43:37 Feeling of lump in throat 441198007 Active 2023 Rik guevara [place] - [facility] 15:09:27 Problem Notes None recorded. Procedures Surgical History Date Name Laterality Status Provider Name and Address Organization Details Recorded Time 03/15/2024 FOL_DP completed Rik Melgar [place] - [facility] 03/15/2024 15:04:56 Imaging Results None recorded. Procedure Notes None recorded. Medical Equipment None Reported. Allergies Allergen ID Allergen Name Allergen Category Reaction Reaction Severity Criticality Documentation Date Start Date Code Code System Note Provider Name and Address Organization Details Recorded Time 148574 Vistaril medicatio n Not available Not available Not available 03/15/2024 24390 9 RxNorm FLORI Segura [facility] 4 13:04:44 532008 Celexa medicatio n Not available Not available Not available 03/15/2024 88598 8 RxNorm Gertrudis guevara [facility] 4 13:05:14 912923 Seroquel medicatio n Not available Not available Not available 03/15/2024 69223 RxNorm Gertrudis guevara, [facility] 4 13:05:22 29660 citalopra m medicatio n other Not available Not available 08/08/2023 2556 RxNorm React ion: unkno wn, unspe cifie d;; Not Available [facility] 4 01:01:05 73002 quetiapin e Not available other Not available Not available 08/08/2023 83047 RxNorm React ion: unkno wn, unspe cifie d;; Not Available [facility] 4 01:01:09 86141 aspirin / oxycodone medicatio n other Not available Not available 08/08/2023 24468 6 RxNorm React ion: unkno wn, unspe cifie d;; Not Available [facility] 4 01:01:10 Medications Name Sig Start Date Stop Date Status Note LastModified by Organization Details LastModified Time nystatin 100,000 unit/mL oral suspension SWISH & SWALLOW 5 ML BY MOUTH 4 TIMES DAILY active Not Available Not Available No t Available atorvastat in 10 mg tablet TAKE 1 TABLET BY MOUTH AT BEDTIME active Not Available Not Available No t Available oxybutynin chloride ER 10 mg tablet,ext ended release 24 hr TAKE 1 TABLET BY MOUTH ONCE DAILY active Not Available Not Available No t Available tizanidine 4 mg tablet TAKE 1 TABLET BY MOUTH ONCE DAILY active Not Available Not Available No t Available fluconazol e 200 mg tablet TAKE 1 TABLET BY MOUTH ONCE DAILY FOR 7 DAYS active Not Available Not Available No t Available ondansetro n HCl 4 mg tablet TAKE 1 TABLET BY MOUTH EVERY 8 HOURS NEEDED FOR NAUSEA active Not Available Not Available No t Available propranolo l ER 60 mg capsule,24 hr,extende d release TAKE 1 CAPSULE BY MOUTH AT BEDTIME active Not Available Not Available No t Available famotidine 20 mg tablet TAKE 1 TABLET BY MOUTH TWICE DAILY NEEDED FOR HEARTBURN active Not Available Not Available No t Available cephalexin 500 mg capsule TAKE 1 CAPSULE BY MOUTH 4 TIMES DAILY active Not Available Not Available No t Available esomeprazo le magnesium 40 mg capsule,de layed release TAKE 1 CAPSULE BY MOUTH IN THE MORNING BEFORE BREAKFAST ON AN EMPTY STOMACH WAIT 30 MINUTES AND THEN EAT TO ACTIVATE MEDICATIO N active Not Available Not Available No t Available Climara 0.0375 mg/24 hr transderma l patch 2015 active Medicatio n ID: [id number] Br and Name: Climara S end Method: E-Prescri bed Subs Allowed: subs OK Medica tionGener icName: Climara Not Available Not Available Not Available Cymbalta 60 mg capsule,de layed release 2015 active Medicatio n ID: [id number] Br and Name: Cymbalta Send Method: E-Prescri bed Subs Allowed: subs OK Medica tionGener icName: Cymbalta Not Available Not Available Not Available Zyrtec 10 mg capsule 1 capsule by mouth 2015 active Medicatio n ID: [id number] Br and Name: Zyrtec Se nd Method: E-Prescri bed Subs Allowed: subs OK Medica tionGener icName: Zyrtec Not Available Not Available Not Available sodium,pot assium,mag sulfates 17.5 gram-3.13 gram-1.6 gram oral soln TAKE FIRST BOTTLE BY MOUTH IN THE EVENING BEFORE COLONOSCO PY, AND THEN SECOND BOTTLE BY MOUTH IN THE MORNING OF COLONOSCO PY active Not Available Not Available No t Available Linzess 145 mcg capsule TAKE 1 CAPSULE BY MOUTH ONCE DAILY active Not Available Not Available No t Available Vitals Date Recorded Body weight Body mass index (BMI) Body height Provider Name and Address Organization Details Last Updated DateTime 03/15/2024 86199.78 g 26.2 kg/m2 166.37 cm Gertrudis Ashraf [place] - [facility] 03/15/2024 13:03:04 Social History None recorded. Functional Status None recorded. Mental Status None recorded. Family History Nothing Reported. Medical History Condition Response Arthritis Y Anxiety Y Depression Y Gynecological HistoryNo gynecological history recorded. Obstetrics History GPAL:G 0 P 0 0 0 0 Past Encounters Encounter ID Performer Location Encounter Start Date Encounter Closed Date Diagnosis/Indication Diagnosis SNOMED-CT Code Diagnosis ICD10 Code Diagnosis IMO Codes Diagnosis Note [id number] RIK MELGAR PA-C [facility] [address] [address] 03/15/2024 12:48:13 03/15/2024 13:45:36 Gastroesophageal reflux disease without esophagitis 776592153 K21.9 Allergic rhinitis 161690 04 J30.9 Posterior rhinorrhea 758 40095 R09.82 Feeling of lump in throat 536899948 R09.89 Health Concerns Section Related Observation LastModified by Organization Detai ls LastModified Time None Recorded Concern Status LastModified by Organization Details LastModified Time None Recorded Advance Directives Directive None Recorded Payers Insurance Date Sequence Insurance Name Policy Number Policy Alejandro Covered Member ID Alejandro Member ID Guarantor Name 03/19/2024 1 [employer] (MEDICARE REPLACEMENT/ ADVANTAGE - PPO) [id number] Demi Braun [id number] Demi Braun Notes Date Note Type Note Provider Name and Address Organization Details Recorded Time 03/15/2024 text/html ROS as noted in the HPI 73 year old female presents reporting postnasal drip. She feels a buildup of mucus in the back of her throat. Every morning she coughs up thick white mucus. She was treated with Nystatin swish and swallow for possible thrush by her PCP with no improvement in her symptoms. She reports allergies and takes Alejandra and uses Flonase daily. She denies sinus pressure. She states that this does not seem related to her sinuses. She does have GERD and has been taking Nexium daily for the past 8 months. She has lost 10-12 lbs in the last 6 months because her appetite is decreased. She is a nonsmoker. She denies throat pain. She denies current difficulty swallowing. She reports that at the beginning of the year she did have some difficulty feeling like rice and bread were getting stuck in her throat. She had no episodes of choking. Her PCP found a right thyroid nodule and after aspiration her swallowing symptoms seemed to improve. She is no longer having difficulty swallowing. She does drink water when she eats. She never had an issue swallowing liquids. She has never had allergy testing. She has follow up with endocrinology for her thyroid next month. ELANA ERWIN MD [address] [place] [address], [place], [address], [place] - [facility] 03/15/2024 16:38:49 OBGyn Episode No OBEpisode recorded.
--- OUTSIDE RECORDS SUMMARY | 2025-02-18 17:41 | XMS_ITS | Patient Health Record ---
Author [facility] Address [address] [place] [address] Care Team Providers Care Engraver Picture Name Role Phone Vibha Goode Primary Care Provider Ralph Cowart Unavailable [phone] Irene Sahu Unavailable [phone] Allergies Allergen (clinical drug ingredient) Drug/Non Drug Allergy documented on EMR Reaction Allergy Type Onset Date Status citalopram CeleXA Unknown Drug Allergy Active Percodan Unknown Drug Allergy Active quetiapine SEROquel Unknown Drug Allergy Active hydroxyzine Vistaril Unknown Drug Allergy Activ e Reason For Referral No Information Medications Medication SIG (Take, Route, Frequency, Duration) Notes Start Date End Date Status Propranolol HCl 60 MG 1 tablet Orally On ce a day Active NexIUM Active Atorvastatin Calcium 10 MG 1 tablet Oral ly Once a day Active Ibuprofen 800 MG 1 tablet with food o r milk as needed Orally every 8 hrs Active Atorvastatin Calcium 10 MG 1 tablet Oral ly Once a day; Duration: 30 day(s) Active nexium Active Propranolol HCl 60 MG 1 tablet Orally On ce a day; Duration: 30 day(s) Active tiZANidine HCl 4 MG 1 tablet at bedtime as needed Orally Once a day Active tiZANidine HCl 4 MG 1 tablet at bedtime as needed Orally Once a day; Duration: 30 day(s) Active ibuprofen Active Social History Tobacco Use: Social History Observation Description Date Details (start date - stop date) Never Smoker NA - NA Tobacco use other than smoking: Question Answer Notes Are you an other tobacco user? No Tobacco Control (Standard) Question Answer Notes Tobacco use: Nonsmoker Additional Findings: Tobacco non-user Current no nsmoker AUDIT-C (Standard) Question Answer Notes Did you have a drink containing alcohol in the p ast year? No Points 0 Interpretation Negative Vital Signs Blood pressure diastolic 76 mm Hg 06/20/2024 Height 5ft 5in in 06/20/2024 Blood pressure systolic 130 mm Hg 06/20/2024 Weight 165 lbs 06/20/2024 BMI 27.45 kg/m2 06/20/2024 Procedures Procedure Date Ordered Date Performed Result Body Sit e 57410-Vizjvhyg Plate 06/20/2024 N/A Encounters Encounter Location Date Provider Diagnosis [address] [address] 06/20/2024 Ralph Franco Ingrown nail L60.0 and Pain in right toe(s) M79.[address] [facility] [address] 04/29/2024 Irene Sahu [address] [address] 06/20/2024 Ralph Franco Assessments Encounter Date Diagnosis (ICD Code) Assessment Notes Treatment Notes Treatment Clinical Notes Section Notes 06/20/2024 Pain in right toe(s) (ICD-10 - M79.674) 06/20/2024 Ingrown nail (ICD-10 - L60.0) Patient Educated with: WOUND CARE INSTRUCTIONS.p df 06/20/2024 Other Plan Of Treatment Pending Test Test Name Order Date [id number]-Kvhmiqwk Plate 06/20/2024 Insurance Providers Payer Name Payer Address Payer Phone Subscriber Number Group Number Insured Name Patient Relationship to Insured Coverage Start Date Coverage End Date [facility] 65 Medicare Preferred [address] [place] [address] [id number] Annabrian Eugenesanna Self - patient is the insured Medical (General) History Medical History History ICD Code Anxiety Back,Hip,and Knee pain covid-19 Depression Reflux ( GERD) sinusitis Measles Mumps Chicken pox essential tremors Surgical History Surgery Date(Month/Year) breast reduction 1994 hysterectomy 2007 oopherectomy 1976 Ingrown Toe Nail, right 04/2021
== END 2025-02-18 14:56 | disposition home or self-care (01) ==
LOC: HO.HSMS 13:50
PROVIDERS: PCP Internal Medicine; Visit Provider Nurse Practitioner Family
DX: G25.0 Essential tremor (principal); F32.A Depression, unspecified
CPT/HCPCS: 99214